=== PATIENT | male | born 1965 | race Hispanic/Latino ===

== ENCOUNTER 2021-08-15 19:05 | Inpatient (IN) | payer MEDICARE ==
[~2021-08-15] VITALS: Ht 170.2 cm; Wt 116.0 kg
[2021-08-15] MEDS ORDERED: ONDANSETRON 4MG INJ ONE (22:05)
[2021-08-15] MEDS ORDERED: MORPHINE 4 MG SYG ONE (22:05)
[2021-08-15] MEDS ORDERED: ONDANSETRON 4MG INJ IVP ONE (22:30)
[2021-08-15] MEDS ORDERED: MORPHINE 4 MG SYG IV ONE (22:30)
[2021-08-15] MEDS ORDERED: DEXTROSE 50%-WATER 50 ML DISP.SYRIN IV PRN (23:00)
[2021-08-15] MEDS ORDERED: PHARMACY COMMUNICATION MISC SCH ×2 (23:00)
[2021-08-15] MEDS ORDERED: GLUCAGON 1MG KIT 1 MG ML IM PRN (23:00)
[2021-08-15] MEDS ORDERED: ONDANSETRON 4MG INJ IVP PRN (23:30)
[2021-08-16 00:50] VITALS: BP 150/57
[2021-08-16] MEDS ORDERED: SEVE800T7 PO (01:11)
[2021-08-16] MEDS ORDERED: ATOR10 PO (01:11)
[2021-08-16] MEDS ORDERED: DILT240C94 PO (01:11)
[2021-08-16] MEDS ORDERED: FOLI1TAB85 PO (01:11)
[2021-08-16] MEDS ORDERED: INSU3INS3 SQ (01:11)
[2021-08-16] MEDS ORDERED: AEC81 PO (01:11)
[2021-08-16] MEDS ORDERED: LOSA50TA64 PO (01:11)
[2021-08-16] MEDS: MORPHINE 2 MG SYG IVP PRN ×4 (01:27→20:33)
[2021-08-16 04:14] VITALS: BP 150/64
[2021-08-16 05:11] LABS: BASOPHILS % (AUTO) 0.6 % (0.0-5.0); EOSINOPHILS % (AUTO) 1.5 % (0.0-8.0); HEMATOCRIT 29.2 % (42-54); LYMPHOCYTES % (AUTO) 13.2 % (21.0-51.0); MEAN CORPUSCULAR HEMOGLOBIN 31.6 pg (27.0-33.0); MEAN CORPUSCULAR HGB CONC 33.2 g/dL (32.0-36.0); MEAN CORPUSCULAR VOLUME 95.1 fL (79-99); MONOCYTES % (AUTO) 7.2 % (3.0-13.0); NEUTROPHILS % (AUTO) 77.2 % (40.0-77.0); PLATELET COUNT (AUTO) 189 K/uL (130-400); RED BLOOD CELL COUNT(AUTO) 3.07 MIL/uL (4.50-6.20); RED CELL DISTRIBUTION WIDTH 13.9 % (11.0-15.5); WHITE BLOOD COUNT (AUTO) 8.6 K/uL (4.8-10.8)
[2021-08-16 05:19] LABS: MAGNESIUM 2.3 mg/dL (1.80-2.40); POTASSIUM 5.3 mmol/L (3.5-5.1)
[2021-08-16 05:31] LABS: HEMOGLOBIN A1C 8.3 % (4.0-6.0)
[2021-08-16] MEDS ORDERED: INSULIN HUMULIN R 100 UNIT/ML 3ML ONE (05:32)
[2021-08-16] MEDS: INSULIN R PO SS1 SQ SCH ×4 (06:06→20:44)
[2021-08-16] MEDS: ACETAMINOPHEN 325 MG TAB PO PRN (06:12)
[2021-08-16 07:48] VITALS: BP 139/57
[2021-08-16] MEDS: HEPARIN 5,000 UNIT VIAL SQ SCH ×2 (10:02→20:41)
[2021-08-16 11:26] VITALS: BP 125/45
[2021-08-16 15:49] VITALS: BP 159/56
[2021-08-16 20:30] VITALS: BP 158/54
[2021-08-17] VITALS (8 sets, daily range): BP systolic 110–174; BP diastolic 42–78
[2021-08-17] MEDS ORDERED: CLONIDINE HCL 0.1 MG TABLET ONE (00:55)
[2021-08-17] MEDS ORDERED: CLONIDINE HCL 0.1 MG TABLET PO PRN (01:00)
[2021-08-17] MEDS ORDERED: ACETAMINOPHEN 325 MG TAB PO PRN (01:00)
[2021-08-17] MEDS: ACETAMINOPHEN 325 MG TAB PO PRN (01:03)
[2021-08-17 04:28] LABS: BASOPHILS % (AUTO) 0.3 % (0.0-5.0); EOSINOPHILS % (AUTO) 2.4 % (0.0-8.0); HEMATOCRIT 23.5 % (42-54); LYMPHOCYTES % (AUTO) 14.4 % (21.0-51.0); MEAN CORPUSCULAR HEMOGLOBIN 31.7 pg (27.0-33.0); MEAN CORPUSCULAR HGB CONC 33.2 g/dL (32.0-36.0); MEAN CORPUSCULAR VOLUME 95.5 fL (79-99); MONOCYTES % (AUTO) 9.5 % (3.0-13.0); NEUTROPHILS % (AUTO) 72.9 % (40.0-77.0); PLATELET COUNT (AUTO) 194 K/uL (130-400); RED BLOOD CELL COUNT(AUTO) 2.46 MIL/uL (4.50-6.20); RED CELL DISTRIBUTION WIDTH 13.8 % (11.0-15.5); WHITE BLOOD COUNT (AUTO) 8.6 K/uL (4.8-10.8)
[2021-08-17] MEDS: MORPHINE 2 MG SYG IVP PRN ×3 (04:34→18:55)
[2021-08-17 04:45] LABS: MAGNESIUM 2.1 mg/dL (1.80-2.40); PHOSPHORUS 5.4 mg/dL (2.5-4.9); POTASSIUM 5.9 mmol/L (3.5-5.1)
[2021-08-17 06:03] LABS: CREATININE 9.8 mg/dL (0.5-1.5)
[2021-08-17] MEDS: INSULIN R PO SS1 SQ SCH ×4 (06:38→20:52)
[2021-08-17] MEDS: HEPARIN 5,000 UNIT VIAL SQ SCH ×2 (08:23→20:52)
[2021-08-18] VITALS (20 sets, daily range): BP systolic 97–162; BP diastolic 34–91
[2021-08-18] MEDS: MORPHINE 2 MG SYG IVP PRN ×2 (03:13→09:38)
[2021-08-18 05:40] LABS: HEMATOCRIT 22.8 % (42-54); MEAN CORPUSCULAR HGB CONC 34.2 g/dL (32.0-36.0); MEAN CORPUSCULAR VOLUME 93.4 fL (79-99); PLATELET COUNT (AUTO) 200 K/uL (130-400); RED BLOOD CELL COUNT(AUTO) 2.44 MIL/uL (4.50-6.20); RED CELL DISTRIBUTION WIDTH 13.7 % (11.0-15.5); WHITE BLOOD COUNT (AUTO) 9.7 K/uL (4.8-10.8)
[2021-08-18 06:03] LABS: MAGNESIUM 2.2 mg/dL (1.80-2.40)
[2021-08-18 06:06] LABS: % IRON SATURATION 13.2 % (30-44)
[2021-08-18 06:08] LABS: CREATININE 11.4 mg/dL (0.5-1.5); POTASSIUM 6.1 mmol/L (3.5-5.1)
[2021-08-18 06:32] LABS: BAND NEUTROPHILS % (MANUAL) 1 % (0-2); BASOPHILS % (MANUAL) 1 % (0-2); EOSINOPHILS % (MANUAL) 1 % (1-6); LYMPHOCYTES % (MANUAL) 11 % (22-44); MAN.DIFF COMMENT-IMPRESSION MANUAL DIFFERENTIAL; MONOCYTES % (MANUAL) 6 % (2-9); SEGMENTED NEUTROPHILS % 80 % (40-70)
[2021-08-18 06:33] LABS: PLATELET MORPHOLOGY COMMENT ADEQUATE
[2021-08-18] MEDS: INSULIN R PO SS1 SQ SCH ×3 (06:41→15:59)
[2021-08-18] MEDS: HEPARIN 5,000 UNIT VIAL SQ SCH (07:46)
[2021-08-18] MEDS ORDERED: EPOETIN ALFA-EPBX (ESRD) 10,000 UNIT/ML VIAL SQ ONE (16:00)
[2021-08-19 07:43] LABS: HEPATITIS Bs ANTIGEN SCREEN P Negative (Negative)
== END 2021-08-18 16:53 | disposition home or self-care (01) | DRG 562 ==
LOC: EDH 19:05 → EDHIP 22:22 → 3AH 08-16 00:37 → 4AH 08-16 00:44
PROVIDERS: ADMIT Internal Medicine Infectious Disease; ATTEND Internal Medicine Infectious Disease
PROC: 2W3AXYZ Immobilization of Right Upper Arm using Other Device (ICD-10-PCS; principal; 2021-08-15)
PROC: 5A1D70Z Performance of Urinary Filtration, Intermittent, Less than 6 Hours Per Day (ICD-10-PCS; 2021-08-18)
DX: S42.201A Unspecified fracture of upper end of right humerus, initial encounter for closed fracture (principal); N18.6 End stage renal disease; I12.0 Hypertensive chronic kidney disease with stage 5 chronic kidney disease or end stage renal disease; Z68.41 Body mass index [BMI] 40.0-44.9, adult; E11.22 Type 2 diabetes mellitus with diabetic chronic kidney disease; E87.5 Hyperkalemia; D64.9 Anemia, unspecified; E66.01 Morbid (severe) obesity due to excess calories; S42.301A Unspecified fracture of shaft of humerus, right arm, initial encounter for closed fracture; W10.9XXA Fall (on) (from) unspecified stairs and steps, initial encounter; Y93.89 Activity, other specified; Y92.098 Other place in other non-institutional residence as the place of occurrence of the external cause; Y99.8 Other external cause status; Z99.2 Dependence on renal dialysis; Z88.8 Allergy status to other drugs, medicaments and biological substances; Z83.3 Family history of diabetes mellitus; Z84.1 Family history of disorders of kidney and ureter; Z82.49 Family history of ischemic heart disease and other diseases of the circulatory system
CPT/HCPCS: 36415; 73030; 73060; 73200; 80048; 82728; 82948; 83036; 83540; 83550; 83735; 84100; 85025; 86704; 86706; 87340; 90935; G0378; J1644; J1815; J2270; J2405

== ENCOUNTER 2024-08-07 21:44 | Emergency (ER) | payer MEDICARE ==
[~2024-08-07] VITALS: Ht 170.2 cm; Wt 117.5 kg
[~2024-08-07 21:44] MED LIST: AEC81 PO; ATOR10 PO; DILT240C81 PO; FOLI1TAB85 PO; INSU3INS3 SQ; LOSA50TA64 PO; SEVE800T7 PO
[2024-08-07] MEDS: ZOSYN 3.375GM +NS 50ML IV ONE (22:19)
[2024-08-07] MEDS: acetaMINOPHEN 325 MG TAB PO ONE (22:19)
[2024-08-07 23:18] LABS: BASOPHILS # (AUTO) 0.04 K/uL (0.00-0.20); BASOPHILS % (AUTO) 0.4 % (0.0-5.0); EOSINOPHILS # (AUTO) 0.21 K/uL (0.00-0.70); EOSINOPHILS % (AUTO) 2.3 % (0.0-8.0); IMMATURE GRANULOCYTE ABSOLUTE 0.04 K/uL (0-1); LYMPHOCYTES # (AUTO) 1.1 K/uL (1.0-4.8); LYMPHOCYTES % (AUTO) 11.7 % (21.0-51.0); MEAN CORPUSCULAR HEMOGLOBIN 31.5 pg (27.0-33.0); MEAN CORPUSCULAR HGB CONC 33.2 g/dL (32.0-36.0); MEAN CORPUSCULAR VOLUME 94.7 fL (79-99); MONOCYTES # (AUTO) 0.9 K/uL (0.1-1.0); MONOCYTES % (AUTO) 10.1 % (3.0-13.0); NEUTROPHILS % (AUTO) 75.1 % (40.0-77.0); PLATELET COUNT (AUTO) 169 K/uL (130-400); RED BLOOD CELL COUNT(AUTO) 3.59 MIL/uL (4.50-6.20); RED CELL DISTRIBUTION WIDTH 14.6 % (11.0-15.5); WHITE BLOOD COUNT (AUTO) 9.3 K/uL (4.8-10.8)
[2024-08-08 00:04] LABS: POTASSIUM 5.1 mmol/L (3.5-5.1)
[2024-08-08 00:05] LABS: CREATININE 9.3 mg/dL (0.5-1.3)
--- NOTE | 2024-08-08 01:12 | ERN ---
ED Note History of Present Illness Stated Complaint: C/O SORE TO BOTTOM OF LEFT FOOT Chief Complaint: Abscess Time Seen by MD: 21:50 Time Seen by Midlevel: 21:50 Dictation: The patient is a 58-year-old male with a history of diabetes, hypertension, ESRD on hemodialysis who presents to the emergency department with complaints of wound to left foot onset yesterday. Patient denies any fevers. Denies any trauma to the foot Allergies: Coded Allergies: enalapril (Unverified Allergy, Unknown, 08/15/21) lisinopril (Unverified Allergy, Unknown, 08/15/21) Home Meds Active Scripts Clindamycin HCl (Clindamycin HCl) 150 Mg Capsule, 1 CAP PO QID for 10 Days, #40 CAP 0 Refills Prov:TORIBIO HERNANDEZ FINANCIAL ADMINISTRATION OFFICER 08/08/24 Reported Medications Insulin Glargine,Hum.rec.anlog (Lantus Solostar) 100 Unit/1 Ml Insuln.pen, 10 UNIT SQ HS, SYRINGE 08/16/21 Diltiazem HCl (Diltiazem ER) 240 Mg Capsule.er, 240 MG PO DAILY, CAP 08/16/21 Atorvastatin Calcium (LIPITOR) 10 Mg Tab, 10 MG PO HS, TAB 08/16/21 Losartan Potassium (Losartan Potassium) 50 Mg Tablet, 25 MG PO HS, TAB 08/16/21 Sevelamer Carbonate (Renvela) 800 Mg Tablet, 4000 MG PO TID, TAB 08/16/21 Aspirin (ASPIRIN 81 MG ECTAB) 81 Mg Ectab, 81 MG PO DAILY, TAB.EC 08/16/21 Vit B Cmplx 3/FA/Vit C/Biotin (Denita-Karen Rx Tablet) 1 Each Tablet, 1 EACH PO DAILY, TAB 08/16/21 Past Medical History Past Medical History: Diabetes-Type II, High Cholesterol, Heart Disease, Hypertension Additional Past Medical Hx: HD Surgical History: Other Surgical History Other: LEFT BIG TOE AMPUTATION Social History: Lives with family RN Note Reviewed/Agreed w/PFSH: Yes Review of System Dictation Constitutional: Negative for fever,chills, and weight loss Eyes: Negative for injury, pain,redness, and discharge ENT: Negative for injury,pain or swelling Cardiovascular: Negative for chest pain, palpitations, and edema Respiratory: Negative for shortness of breath, cough, and wheezing, Abdomen/GI: Negative for abdominal pain, nausea, vomiting, diarrhea, and constipation Back: Negative for injury and pain : Negative for injury, bleeding and discharge MS/Extremity: Negative for injury and deformity Skin: Negative for rash, and discoloration positive for left foot wound Neuro: Negative for headache, weakness, numbness, tingling, and seizure Psych: Negative for suicide ideation, homicidal ideation, and hallucinations Initial Vital Sign VS Vital Signs Date Time Temp Pulse Resp B/P (MAP) Pulse Ox O2 Delivery O2 Flow Rate FiO2 08/07/24 21:47 98.8 95 20 177/89 100 Room Air 08/07/24 22:04 0 21 Physical Exam Dictation Vital Signs reviewed General Appearance: Alert, oriented x 3, no acute distress, well developed, nourished. Head and Face: non-traumatic. Eyes: PERRL, pink conjunctivas, eyelid no trauma, anterior chamber with arcus senilis. Ears: Pinnas intact and no signs of trauma or erythema ear canals clear and no discharge TM no erythema Nose: No discharge, no bleeding. Oropharynx: Mouth normal, tongue pink. pharynx clear,no erythema, tonsils no exudates, no abscesses noted, mucous membrane moist Neck: Supple, non-tender, no thyromegaly, no masses, no JVD, no bruits Breast:Deferred Chest:No tenderness, no crepitus, no paradoxical movement, no retractions Lungs:Clear, well-ventilated, symmetric, no rales, no wheezing, no rhonchi, no stridor, good breath sounds bilaterally Heart: Regular rate, regular rhythm, no murmur, no gallops Vascular: no peripheral edema, Abdomen: Soft, positive bowel sounds, nondistended, no guarding, nontender, no rebound, no masses no hepatomegaly, no splenomegaly, no Rodriguez's sign, no hernias. Rectal: Deferred Genital: Deferred Neurological: Normal speech, motor function intact, sensory function intact Musculoskeletal: Neck nontender, full range of motion, back nontender, full range of motion, Extremities: nontender, full range of motion Skin: Color pink, dry, no turgor, no rash, no lacerations, no abrasions, no contusions. Small abscess noted to left outer foot about3 cm, tenderness to palpation. Lymphatic: Deferred Results (Laboratory/Radiology) Laboratory/Radiology Laboratory Tests Test 08/07/24 22:43 08/07/24 23:42 White Blood Count 9.3 K/uL (4.8-10.8) Red Blood Count 3.59 MIL/uL (4.50-6.20) L Hemoglobin 11.3 g/dL (14.0-18.0) L Hematocrit 34.0 % (42-54) L Mean Corpuscular Volume 94.7 fL (79-99) Mean Corpuscular Hemoglobin 31.5 pg (27.0-33.0) Mean Corpuscular Hemoglobin Concent 33.2 g/dL (32.0-36.0) Red Cell Distribution Width 14.6 % (11.0-15.5) Platelet Count 169 K/uL (130-400) Mean Platelet Volume 9.5 fL (7.5-10.5) Immature Granulocyte % (Auto) 0.4 % (0-1) Neutrophils (%) (Auto) 75.1 % (40.0-77.0) Lymphocytes (%) (Auto) 11.7 % (21.0-51.0) L Monocytes (%) (Auto) 10.1 % (3.0-13.0) Eosinophils (%) (Auto) 2.3 % (0.0-8.0) Basophils (%) (Auto) 0.4 % (0.0-5.0) Neutrophils # (Auto) 7.0 K/uL (1.8-7.7) Lymphocytes # (Auto) 1.1 K/uL (1.0-4.8) Monocytes # (Auto) 0.9 K/uL (0.1-1.0) Eosinophils # (Auto) 0.21 K/uL (0.00-0.70) Basophils # (Auto) 0.04 K/uL (0.00-0.20) Absolute Immature Granulocyte (auto 0.04 K/uL (0-1) Nucleated Red Blood Cells 0.0 % (0.0-0.19) Lactic Acid Level 2.2 mmol/L (0.8-2.5) Sodium Level 135 mmol/L (136-145) L Potassium Level 5.1 mmol/L (3.5-5.1) Chloride Level 95 mmol/L (101-111) L Carbon Dioxide Level 28 mmol/L (21-32) Blood Urea Nitrogen 70 mg/dL (7-18) H Creatinine 9.3 mg/dL (0.5-1.3) *H Glomerular Filtration Rate Calc 6 mL/min (>90) Random Glucose 138 mg/dL (70-105) H Total Calcium 7.8 mg/dL (8.5-10.1) L Labs Reviewed?: Yes ED Course ED Course Orders Procedure Category Date Status Time Cbc With Differential LAB 08/07/24 Complete 22:09 Blood Cult KAREN 08/07/24 In Process 22:09 Lactic Acid LAB 08/07/24 Complete 22:09 Foot Comp 3+Vws Lt RAD 08/07/24 Taken 22:09 Zosyn 3.375gm+Ns 50ml PHA 08/07/24 Complete (Zosyn 3.375gm+Ns 22:30 Acetaminophen 325 Tab PHA 08/07/24 Complete (Tylenol 325mg Tab 22:30 Basic Metabolic Panel LAB 08/07/24 Complete 22:40 Morphine 4mg Syg PHA 08/08/24 Logged (Morphine 4mg Syg) 01:30 Current Medications Medications (Trade) Dose Ordered Sig/Shirley Route PRN Reason Start Time Stop Time Status Last Admin Dose Admin Acetaminophen (TYLenol 325MG TAB) 650 mg ONCE ONCE PO 08/07/24 22:30 08/07/24 22:31 DC 08/07/24 22:19 Morphine Sulfate (morPHINE 4MG SYG) 4 mg ONCE ONCE IVP 08/08/24 01:30 08/08/24 01:31 UNV Piperacillin Sod/ Tazobactam Sod (Zosyn 3.375gm+NS 50ml) 3.375 gm STAT ONCE IV 08/07/24 22:30 08/07/24 22:31 DC 08/07/24 22:19 Vital Signs Date Time Temp Pulse Resp B/P (MAP) Pulse Ox O2 Delivery O2 Flow Rate FiO2 08/07/24 22:04 99.5 91 18 179/76 99 Room Air* 0 21 08/07/24 21:47 98.8 95 20 177/89 100 Room Air Medical Decision Making MDM The patient is a 58-year-old male with a history of diabetes, hypertension, ESRD on hemodialysis who presents to the emergency department with complaints of wound to left foot onset yesterday. Patient denies any fevers. Denies any trauma to the foot CBC showed no leukocytosis, normocytic anemia, chemistry showed Differential diagnosis: Abscess, cellulitis, sepsis, electrolyte imbalance, hematoma mild hyponatremia, hypochloremia, elevated BUN and creatinine patient and renal failure on dialysis. Potassium of 5.1. Patient's wound was puncture with a needle and had only bloody drainage. Patient's symptoms most likely hematoma versus abscess. Patient will be treated with the antibiotics as outpatient. Instructed to follow up with mogul operator which patient is pending call back for appointment. Need for hospitalization: Patient does not meet criteria for hospitalization. There are no social concerns with this patient. DX & DISP Disposition: Discharge Departure Impression: Primary Impression: Hematoma of left foot Additional Impressions: Anemia, ESRD (end stage renal disease), Hyponatremia, Hypochloremia, Cellulitis of foot, left Condition: Stable Scripts Clindamycin HCl (Clindamycin HCl) 150 Mg Capsule 1 CAP PO QID for 10 Days, #40 CAP 0 Refills Prov: TORIBIO HERNANDEZ 08/08/24 Additional Instructions: Please follow up with your mogul operator. Follow up with your PCP. If symptoms worsen please return to ER. FOLLOW-UP WITH PRIMARY CARE PROVIDER IN 1 TO 2 DAYS. TAKE MEDICATIONS DIRECTED HERE IN THE EMERGENCY ROOM. OKAY TO CONTINUE HOME MEDICATIONS UNLESS OTHERWISE DISCUSSED DURING YOUR VISIT IN THE EMERGENCY ROOM TODAY. RETURN TO YOUR NEAREST EMERGENCY ROOM IF SYMPTOMS WORSEN OR IF THERE IS NO IMPROVEMENT. CALL 911 IF YOU NEED IMMEDIATE ASSISTANCE. TAKE TYLENOL OR MOTRIN [id number] NEEDED AND IF NO CONTRAINDICATIONS ARE PRESENT. INCREASE ORAL HYDRATION. A WOUND CULTURE OR URINE CULTURE WAS ORDERED HERE IN THE EMERGENCY ROOM DEPARTMENT PLEASE FOLLOW-UP WITH PRIMARY CARE PROVIDER AND ADVISE THEM TO GET REPEAT PORTS FROM OUR FACILITY. IF YOU HAD ANY GRACIELA WRAP/SPLINTS THAT WERE APPLIED HERE, PLEASE DO NOT REMOVE THEM UNTIL YOU SEE YOUR PRIMARY CARE OR SPECIALTY. Referrals: ESPERANZA RECINOS MD (PCP) Time of Disposition: 01:12 I have examined patient, & reviewed all documents, & agreed W/ the Diagnosis, and Plan TORIBIO HERNANDEZ Aug 08, 2024 01:12
[2024-08-08] MEDS ORDERED: CLIN-116 PO (01:14)
[2024-08-08 01:26] VITALS: BP 151/74; PULSE 90; RESP 18; TEMP 99.3; O2SAT 100
[2024-08-08] MEDS ORDERED: morPHINE 4 MG SYG IVP ONE (01:30)
--- NOTE | 2024-08-08 08:44 | HMCIMG ---
FOOT COMP 3+VWS LT REASON: cellulits abscess TECHNIQUE: 3 views were obtained. FINDINGS: There is been transmetatarsal amputation of the left first toe. Bones appear otherwise unremarkable. There are no areas of bone lysis to suggest osteomyelitis. There is soft tissue swelling without evidence of soft tissue gas. IMPRESSION: 1. Soft tissue swelling. 2. No radiographic evidence of osteomyelitis or gas forming infection.
== END 2024-08-08 01:46 | disposition home or self-care (01) ==
LOC: EDH 21:44
DX: S90.32XA Contusion of left foot, initial encounter (principal); D64.9 Anemia, unspecified; I12.0 Hypertensive chronic kidney disease with stage 5 chronic kidney disease or end stage renal disease; E11.22 Type 2 diabetes mellitus with diabetic chronic kidney disease; N18.6 End stage renal disease; Z99.2 Dependence on renal dialysis; E78.00 Pure hypercholesterolemia, unspecified; E87.1 Hypo-osmolality and hyponatremia; E87.8 Other disorders of electrolyte and fluid balance, not elsewhere classified; Z79.82 Long term (current) use of aspirin; Z88.8 Allergy status to other drugs, medicaments and biological substances; X58.XXXA Exposure to other specified factors, initial encounter; Y93.89 Activity, other specified; Y92.89 Other specified places as the place of occurrence of the external cause; Y99.8 Other external cause status
CPT/HCPCS: 99284; 96365; 80048; 85025; 87040 ×2; 83605; 36415; 73630; J2543

== ENCOUNTER 2024-09-24 03:29 | Emergency (ER) | payer MEDICARE ==
[~2024-09-24] VITALS: Ht 170.2 cm; Wt 108.9 kg
[~2024-09-24 03:29] MED LIST changes: +CLIN-116 PO
[2024-09-24 03:40] VITALS: TEMP 98.4
[2024-09-24] MEDS ORDERED: CIPR7.5D7 OTIC (04:22)
[2024-09-24] MEDS ORDERED: AMOX1TAB16 PO (04:22)
--- NOTE | 2024-09-24 04:26 | ERN ---
ED Note History of Present Illness Stated Complaint: RT EAR PAIN Chief Complaint: Earache Time Seen by MD: 03:34 Dictation: This is a 58-year-old morbidly obese male with multiple medical problems presented to the emergency room with complaints of right earache for the past 2 days. He went to dialysis and when he slept the pain got extremely severe and who not sleep and came to the ER for further evaluation. The earache radiates to the right side of the face. No pus draining from the ear no bleeding. No obvious fevers. No tooth infection. No facial swelling. Allergies: Coded Allergies: enalapril (Unverified Allergy, Unknown, 08/15/21) lisinopril (Unverified Allergy, Unknown, 08/15/21) Home Meds Active Scripts Acetaminophen with Codeine (Acetaminophen-Cod #3 Tablet) 300 Mg-30 Mg Tablet, 1 TAB PO Q6HPRN PRN for pain for 7 Days, #15 TAB 0 Refills Prov:HONEY HURST MD 09/24/24 Ciprofloxacin HCl/Dexameth (Ciproflox-Dexameth Otic Susp) 0.3 %-0.1 % Drops.susp, 4 DROP OTIC BID for 7 Days, #7.5 ML 0 Refills Prov:HONEY HURST MD 09/24/24 Amoxicillin/Potassium Clav (Amox Tr-K Clv 875-125 mg Tab) 875 Mg-125 Mg Tablet, 1 EACH PO BID for 5 Days, #10 TAB 0 Refills Prov:HONEY HURST MD 09/24/24 Clindamycin HCl (Clindamycin HCl) 150 Mg Capsule, 1 CAP PO QID for 10 Days, #40 CAP 0 Refills Prov:TORIBIO HERNANDEZ 08/08/24 Reported Medications Insulin Glargine,Hum.rec.anlog (Lantus Solostar) 100 Unit/1 Ml Insuln.pen, 10 UNIT SQ HS, SYRINGE 08/16/21 Diltiazem HCl (Diltiazem ER) 240 Mg Capsule.er, 240 MG PO DAILY, CAP 08/16/21 Atorvastatin Calcium (LIPITOR) 10 Mg Tab, 10 MG PO HS, TAB 08/16/21 Losartan Potassium (Losartan Potassium) 50 Mg Tablet, 25 MG PO HS, TAB 08/16/21 Sevelamer Carbonate (Renvela) 800 Mg Tablet, 4000 MG PO TID, TAB 08/16/21 Aspirin (ASPIRIN 81 MG ECTAB) 81 Mg Ectab, 81 MG PO DAILY, TAB.EC 08/16/21 Vit B Cmplx 3/FA/Vit C/Biotin (Denita-Karen Rx Tablet) 1 Each Tablet, 1 EACH PO DAILY, TAB 08/16/21 Past Medical History Past Medical History: Diabetes-Type II, High Cholesterol, Heart Disease, Hypertension, Renal Disese, Renal Failure Additional Past Medical Hx: HD Surgical History: Appendectomy, Other Surgical History Other: LEFT BIG TOE AMPUTATION Family History: Negative Social History: Lives with family RN Note Reviewed/Agreed w/PFSH: Yes Review of System Dictation Constitutional: Negative for fever,chills, and weight loss Eyes: Negative for injury, pain,redness, and discharge ENT: Negative for injury, severe right ear pain Cardiovascular: Negative for chest pain, palpitations, and edema Respiratory: Negative for shortness of breath, cough, and wheezing, Abdomen/GI: Negative for abdominal pain, nausea, vomiting, diarrhea, and constipation Back: Negative for injury and pain : Negative for injury, bleeding and discharge MS/Extremity: Negative for injury and deformity Skin: Negative for rash, and discoloration Neuro: Negative for headache, weakness, numbness, tingling, and seizure Psych: Negative for suicide ideation, homicidal ideation, and hallucinations Initial Vital Sign VS Vital Signs Date Time Temp Pulse Resp B/P (MAP) Pulse Ox O2 Delivery O2 Flow Rate FiO2 09/24/24 03:30 98.8 92 18 198/99 100 Room Air 09/24/24 03:40 0 21 Physical Exam Dictation General: awake, alert, NAD morbidly obese uncomfortable due to pain Head/Face: Normocephalic, atraumatic Eyes: PERRL, EOMI, vision at baseline ENT: oral cavity clear, TMs clear, RIGHT EAR EXTERNAL AUDITORY CANAL IS EXTREMELY INFLAMED VERY NARROW TYMPANIC MEMBRANES ARE BULGING DIFFICULT TO VISUALIZE DUE TO SEVERE PAIN AND NARROWING OF THE EAR CANAL. NO FOREIGN BODY OR BLEEDING NOTED THERE WAS SMALL AMOUNTS OF DRAINAGE. Neck: Trachea midline, supple, no nuchal rigidity Cardiovascular: RRR, normal S1/S2, No MRGs, no JVD Respiratory: CTAB, no respiratory distress, No rales or wheezes Abdomen: Soft, non-tender, non-distended, normal bowel sounds, no guarding or rebound. Skin: Warm, dry, normal turgor, no rash MS/Extremity: Pulses equal, no cyanosis, neurovascular intact, FROM Neuro: COAx4, GCS 15, strength 5/5, CN 2-12 intact, normal cerebellar exam, normal gait, Psych: Normal behavior, mood, and affect normal Extremities-trace edema without any palpable cords, Homans sign is negative ED Course ED Course Orders Procedure Category Date Status Time Hydromorphone 1 Mg PHA 09/24/24 Complete Inj (Dilaudid 1mg Inj 04:30 Zosyn 3.375gm+Ns 50ml PHA 09/24/24 Complete (Zosyn 3.375gm+Ns 04:30 Lidocaine Hcl 4% Top PHA 09/24/24 Complete Sariah (Lidocaine Hcl 05:30 Hydralazine 20mg Inj PHA 09/24/24 In Process (Apresoline 20mg In 06:00 Current Medications Medications (Trade) Dose Ordered Sig/Shirley Route PRN Reason Start Time Stop Time Status Last Admin Dose Admin Hydralazine HCl (APRESOLine 20MG INJ) 20 mg ONCE ONCE IV 09/24/24 06:00 09/24/24 06:01 09/24/24 05:50 Hydromorphone HCl (DiLAUDid 1MG INJ) 1 mg ONCE ONCE IVP 09/24/24 04:30 09/24/24 04:31 DC 09/24/24 04:27 Lidocaine HCl (Lidocaine HCl 4% Top Sariah) 2 ml ONCE ONCE TP 09/24/24 05:30 09/24/24 05:31 DC 09/24/24 05:29 Piperacillin Sod/ Tazobactam Sod (Zosyn 3.375gm+NS 50ml) 3.375 gm ONCE ONCE IV 09/24/24 04:30 09/24/24 04:31 DC 09/24/24 04:29 Vital Signs Date Time Temp Pulse Resp B/P (MAP) Pulse Ox O2 Delivery O2 Flow Rate FiO2 09/24/24 05:45 86 16 220/95 97 Room Air* 0 21 09/24/24 04:56 87 18 207/95 99 Room Air* 0 09/24/24 03:40 98.4 90 17 207/98 100 Room Air* 0 21 09/24/24 03:30 98.8 92 18 198/99 100 Room Air We will perform administer medications according to the patient's complaint. Once the results are available, will review and personally interpreted the labs to rule out any acute life-threatening emergency the trach require immediate intervention and treatment. I will then re-evaluate the patient after treatment and diagnostic exams have return to determine whether the patient requires any further testing, can safely be discharged home or need further admission to hospital for additional treatment and evaluation. Patient feels better after IV antibiotic and IV pain medication. He will be discharged to home on p.o. antibiotics and I have given him a few Tylenol number threes because of the excruciating pain in his right ear with severe inflammation. We went over the side effects especially in the setting of renal failure and dialysis . He verbalized full understanding of the adverse effects of the medications Medical Decision Making MDM MDM: Differential diagnosis: Otitis externa, otitis media, temporomandibular joint inflammation, maxillary sinusitis, odontogenic infections Rationale: Tests considered and ordered secondary to shared decision making include: Previous outside records reviewed: Old ER visits. Risk of complication and/or morbidity or mortality of patient management: None Medications-Per medication reconciliation Need for hospitalization: Patient does not meet criteria for hospitalization. Need for emergency major/minor surgery: No There are no social concerns with this patient. Prescription drug management Prescriptions will include symptomatic care Patient's prior external medical records from other ER visits were reviewed by me as indicated. Prior testing and results from previous visits were reviewed. Prior tests were taken into account with medical decision making and resource utilization, independent historian/historians were used to obtain complete medical history. I independently interpreted the test that were performed, results were reviewed by me and considered findings on radiology if ordered. Medical management and examination interpretation discussions were had by me with other qualified healthcare professionals as indicated for the patient's care. Problem List Problem List: (1) End-stage renal disease on hemodialysis (2) Right acute otitis media (3) Type 2 diabetes mellitus (4) Essential hypertension DX & DISP Disposition: Discharge Departure Impression: Primary Impression: Right acute otitis media Additional Impressions: End-stage renal disease on hemodialysis, Essential hypertension, Type 2 diabetes mellitus Condition: Stable Scripts Acetaminophen with Codeine (Acetaminophen-Cod #3 Tablet) 300 Mg-30 Mg Tablet 1 TAB PO Q6HPRN PRN for pain for 7 Days, #15 TAB 0 Refills Prov: HONEY HURST MD 09/24/24 Ciprofloxacin HCl/Dexameth (Ciproflox-Dexameth Otic Susp) 0.3 %-0.1 % Drops.susp 4 DROP OTIC BID for 7 Days, #7.5 ML 0 Refills Prov: HONEY HURST MD 09/24/24 Amoxicillin/Potassium Clav (Amox Tr-K Clv 875-125 mg Tab) 875 Mg-125 Mg Tablet 1 EACH PO BID for 5 Days, #10 TAB 0 Refills Prov: HONEY HURST MD 09/24/24 Additional Instructions: Patient and the caregiver have been informed of all the diagnostic tests and the imaging conducted during the today's visit to the emergency room and has verbalized understanding of the results I have personally reviewed and interpreted all diagnostic exams performed here in the ER today as well as the vital signs documented by the nursing staff. The patient is now being discharged to home and should follow up with the primary care physician or the specialist as directed by the ER staff. Follow-up with primary care provider in 1 to 2 days. Take medications as directed here in the emergency room. Okay to continue home medications unless otherwise discussed during your visit in the emergency room today. Return to your nearest emergency room if symptoms worsen or if there is no improvement. Call 911 if you need immediate assistance. Take Tylenol or Motrin [id number] as needed and if no contraindications are present. Increase oral hydration. A wound culture or urine culture was ordered here in the emergency room department please follow-up with primary care provider and advise them to get repeat ports from our facility. If you had any Arcadio wrap/splints that were applied here, please do not remove them until you see your primary care or specialty. Referrals: ESPERANZA RECINOS MD (PCP) HONEY HURST MD Sep 24, 2024 04:26
[2024-09-24] MEDS: hydroMORPHone 1 MG INJ IVP ONE (04:27)
[2024-09-24] MEDS: ZOSYN 3.375GM +NS 50ML IV ONE (04:29)
--- NOTE | 2024-09-24 04:56 | NUR ---
MD MADE AWARE OF BLOOD PRESSURE
[2024-09-24] MEDS ORDERED: ACET-2079 PO (05:24)
[2024-09-24] MEDS: LIDOCAINE HCL 4% TOP SOL 50ML TP ONE (05:29)
[2024-09-24] MEDS: hydrALAZine 20MG/ML VIAL IV ONE (05:50)
[2024-09-24 06:53] VITALS: BP 177/80; PULSE 99; RESP 18; O2SAT 98
--- NOTE | 2024-09-24 06:59 | NUR ---
REPORT GIVEN TO ASHISH REGALADO AT THIS TIME. PENDING DISCHARGE.
== END 2024-09-24 07:17 | disposition home or self-care (01) ==
LOC: EDH 03:29
DX: H66.91 Otitis media, unspecified, right ear (principal); I12.0 Hypertensive chronic kidney disease with stage 5 chronic kidney disease or end stage renal disease; E11.22 Type 2 diabetes mellitus with diabetic chronic kidney disease; N18.6 End stage renal disease; E78.00 Pure hypercholesterolemia, unspecified; Z79.82 Long term (current) use of aspirin; Z88.8 Allergy status to other drugs, medicaments and biological substances; Z90.49 Acquired absence of other specified parts of digestive tract; Z99.2 Dependence on renal dialysis
CPT/HCPCS: 99285; 96365; 96375; 96366; J1171; J0360; J2543